=== PATIENT | male | born 1995 | race African-American/Black ===

== ENCOUNTER 2023-02-13 22:22 | Emergency (ER) | payer SELFPAY ==
[2023-02-13] MEDS ORDERED: Amoxicillin/Potassium Clav 875 MG TAB ONE (23:50)
[2023-02-13] MEDS ORDERED: Ibuprofen 800 MG TAB ONE (23:51)
== END 2023-02-14 00:15 | disposition home or self-care (01) ==
LOC: CSHERS 22:22
DX: K08.89 Other specified disorders of teeth and supporting structures (principal); F17.210 Nicotine dependence, cigarettes, uncomplicated
CPT/HCPCS: 99282

== ENCOUNTER 2023-08-24 17:09 | Emergency (ER) | payer SELFPAY ==
[2023-08-24] MEDS ORDERED: Fluorescein Opthalmic Strip ONE (18:17)
[2023-08-24] MEDS ORDERED: Proparacaine 0.5% Opth 15 ML BOT ONE (18:17)
[2023-08-24] MEDS ORDERED: Proparacaine 0.5% Opth 15 ML BOT EA EYE SCH (18:30)
== END 2023-08-24 19:40 | disposition home or self-care (01) ==
LOC: CSHERS 17:09
DX: S05.01XA Injury of conjunctiva and corneal abrasion without foreign body, right eye, initial encounter (principal); X58.XXXA Exposure to other specified factors, initial encounter
CPT/HCPCS: 99283

== ENCOUNTER 2024-01-16 16:04 | Emergency (ER) | payer SELFPAY ==
[2024-01-16] MEDS ORDERED: Cyclobenzaprine 10 MG TAB ONE (17:40)
[2024-01-16] MEDS ORDERED: Lidocaine 4% Patch ONE (17:40)
[2024-01-16] MEDS ORDERED: Naproxen 500 MG TAB ONE (17:40)
== END 2024-01-16 17:58 | disposition home or self-care (01) ==
LOC: CSHERS 16:04
DX: M54.50 Low back pain, unspecified (principal)
CPT/HCPCS: 99283

== ENCOUNTER 2024-01-24 14:53 | Emergency (ER) | payer SELFPAY | END 2024-01-24 15:14 | disposition home or self-care (01) | LOC: CSHERS 14:53 | DX: K04.7 Periapical abscess without sinus (principal) | CPT/HCPCS: 99282 ==

== ENCOUNTER 2024-02-03 12:58 | Emergency (ER) | payer SELFPAY | END 2024-02-03 13:30 | disposition home or self-care (01) | LOC: CSHERS 12:58 | DX: K08.89 Other specified disorders of teeth and supporting structures (principal); R03.0 Elevated blood-pressure reading, without diagnosis of hypertension; Z55.0 Illiteracy and low-level literacy | CPT/HCPCS: 99283 ==

== ENCOUNTER 2024-05-02 17:11 | Emergency (ER) | payer SELFPAY ==
[2024-05-02] MEDS ORDERED: Amoxicillin/Potassium Clav 875 MG TAB ONE (18:12)
[2024-05-02] MEDS ORDERED: Ibuprofen 200 MG TAB ONE (18:12)
== END 2024-05-02 18:27 | disposition home or self-care (01) ==
LOC: CSHERS 17:11
DX: K02.9 Dental caries, unspecified (principal)
CPT/HCPCS: 99282

== ENCOUNTER 2025-01-22 09:04 | Emergency (ER) | payer SELFPAY ==
[2025-01-22] MEDS ORDERED: Ketorolac Tromethamine 30 MG (1 mL) VIAL ONE (10:17)
[2025-01-22] MEDS ORDERED: Methocarbamol 500 MG TAB ONE (10:18)
== END 2025-01-22 09:52 | disposition home or self-care (01) ==
LOC: CSHERS 09:04
DX: G56.03 Carpal tunnel syndrome, bilateral upper limbs (principal); X50.9XXA Other and unspecified overexertion or strenuous movements or postures, initial encounter
CPT/HCPCS: 96372; 99283; J1885